=== PATIENT | female | born 1960 | race Caucasian/White ===

== ENCOUNTER 2018-03-17 17:57 | Emergency (ER) | payer BC ==
[~2018-03-17] VITALS: Ht 154.9 cm; Wt 90.7 kg
--- NOTE | 2018-03-17 18:48 | NUR ---
Dr Morrison at the bedside for MSE.
--- NOTE | 2018-03-17 19:01 | NUR ---
RECEIVED SHIFT REPORT FROM JONA DEL ANGEL.
--- NOTE | 2018-03-17 19:04 | NUR ---
XRAY AT BEDSIDE.
--- NOTE | 2018-03-17 19:38 | NUR ---
JOSE ALFREDO SOSA AT BEDSIDE FOR PT UPDATE.
--- NOTE | 2018-03-17 19:59 | NUR ---
THUMB SPICA APPLIED TO L WRIST. SHOULDER SLING APPLIED TO R SHOUDER. JOSE WRAP APPLIED TO L ANKLE. PMSC INTACT AND < 3 SECS POST APPLICATIONS.
--- NOTE | 2018-03-17 20:00 | NUR ---
Patient discharged to home in stable conditon. Written and verbal after care instructions given. Patient verbalizes understanding of instructions. PT D/C HOME W/ PRESCRIPTION. ALL BELONGINGS W/ PT. PT SELF-AMBULATED WITHOUT DIFFICULTY.
[2018-03-17 20:02] VITALS: BP 122/78
== END 2018-03-17 20:00 | disposition home or self-care (01) ==
LOC: ER 18:02 → EDBD 18:02 → ER 20:00
DX: S93.402A Sprain of unspecified ligament of left ankle, initial encounter (principal); S40.011A Contusion of right shoulder, initial encounter; S60.212A Contusion of left wrist, initial encounter; S60.222A Contusion of left hand, initial encounter; S80.02XA Contusion of left knee, initial encounter; I10 Essential (primary) hypertension; E78.5 Hyperlipidemia, unspecified; E11.9 Type 2 diabetes mellitus without complications; Z88.0 Allergy status to penicillin; W01.0XXA Fall on same level from slipping, tripping and stumbling without subsequent striking against object, initial encounter; Y93.89 Activity, other specified; Y92.89 Other specified places as the place of occurrence of the external cause; Y99.8 Other external cause status
CPT/HCPCS: 73030; 73110; 73130; 73610; A4663